=== PATIENT | male | born 1980 | race African-American/Black ===

== ENCOUNTER 2019-11-16 17:00 | Emergency (ER) | payer OTHER, SELFPAY ==
[2019-11-16 17:40] VITALS: BP 131/77; PULSE 76; RESP 16; TEMP 36.8; O2SAT 100; BMI 30.2
--- NOTE | 2019-11-16 17:50 | DI.RAD.S_ITS ---
PROCEDURE: XR ANKLE RT MIN 3V INDICATIONS: ANKLE PAIN TECHNIQUE: 3 views of the ankle were acquired. COMPARISON: None. FINDINGS: Bones: No acute fracture or dislocation. Degenerative changes are present at the mortise joint. A small chronic appearing non unified fracture or calcific tendinitis is noted at the talofibular joint. Soft tissues: No tibiotalar joint effusion. Achilles tendon appears normal. IMPRESSION: Degenerative change. No acute radiographic findings. If pain persists, followup imaging in 5-7 days is recommended to exclude occult fracture. Dictated by: Jolanta Contreras M.D. on 11/16/2019 at 18:15 Approved by: Jolanta Contreras M.D. on 11/16/2019 at 18:17
--- NOTE | 2019-11-16 18:47 | ED_ITS ---
HPI - Extremity Problem General Chief complaint: Extremity Problem,Nontraumatic Stated complaint: right ankle swelling Time Seen by Provider: 11/16/19 17:47 Source: patient Mode of arrival: Ambulatory Limitations: no limitations History of Present Illness HPI Narrative: Otherwise healthy 39-year-old gentleman woke up this morning with his right ankle swollen, tender, not red nor warm to the touch. He is able to b ear weight but it uncomfortable. He has taken 600 mg of ibuprofen with some relief. Does not describe any trauma. He has no history of gout or reason for blood clots. Related Data Allergies Allergy/AdvReac Type Severity Reaction Status Date / Time No Known Drug Allergies Allergy Verified 11/16/19 17:40 Review of Systems Review of Systems Narrative: Pertinent positive and negative findings as per HPI Remainder of review of systems is otherwise unremarkable for Constitutional: Fevers, chills, weakness ENT: No sore throat, neck pain, ear pain CV: Chest pain, palpitations, dyspnea on exertion Respiratory: Cough, wheeze, dyspnea GI: Nausea, vomiting, diarrhea, change in bowel habits, black or bloody stools : Dysuria, hematuria, flank pain MS: Muscle weakness, numbness, joint swelling or warmth Skin: Rashes, nonhealing lesions Patient History Medical History Healthy adult (Acute) Social History Smoking Status: Never smoker Smoking Status: Never smoker Substance Use Type: does not use Exam Narrative Exam Narrative: General: Alert appropriate in no acute distress Respiratory: Able to speak in full sentences, no obvious respiratory distress Skin: No obvious rashes, warm and dry Neurologic: Grossly intact no obvious asymmetries or abnormalities Psych, appropriate insight and affect, cooperative Extremity: Right ankle is somewhat swollen he has full range of motion and is neurovascularly intact. He is tender laterally under the malleolus without any bony point tenderness. His calf is slightly swollen and tender with compression as well. Initial Vital Signs Initial Vital Signs: Vital Signs Temperature 98.2 F 11/16/19 17:40 Pulse Rate 76 11/16/19 17:40 Respiratory Rate 16 11/16/19 17:40 Blood Pressure 131/77 11/16/19 17:40 Pulse Oximetry 100 11/16/19 17:40 Procedures Orthopedic Splinting/Casting Right ankle: Side: right Lower Extremity Injury Location: ankle Lower Extremity Immobilizer: Crow wrap Post splinting vascular exam: intact Placed by: Provider Course Orders Ordered: ED Orders 11/16/19 17:50 XR ankle RT min 3V Stat 11/16/19 18:48 US periph venous low extrem rt Stat 11/16/19 19:28 C-Reactive Protein Quant Stat Complete Blood Count AUTO DIFF Stat Comprehensive Metabolic Panel Stat Uric Acid Stat Vital Signs Vital signs: Vital Signs - 8 hr 11/16/19 17:40 Temperature 98.2 F Pulse Rate 76 Respiratory Rate 16 Blood Pressure 131/77 Pulse Oximetry 100 MDM - Extremity (Nontraumatic) Lab Data Result diagrams: 11/16/19 19:28 11/16/19 19:28 Labs: Lab Results 11/16/19 11/16/19 Range/Units 19:28 19:28 WBC 8.1 (4.5-11.0) X10^3/uL RBC 5.31 (4.5-5.9) X10^6/uL Hgb 14.8 (13.5-17.5) g/dL Hct 45.2 (41-53) % MCV 85.2 (80-100) fL MCH 27.9 (26-34) PG MCHC 32.8 (30-36) % RDW 14.9 H (11.6-14.8) % Plt Count 291 (150-400) X10^3/uL Neut % (Auto) 55.9 (50-75) % Lymph % (Auto) 34.1 (25-40) % [place] % (Auto) 7.2 (3-14) % Eos % (Auto) 2.2 (2-4) % Baso % (Auto) 0.6 (0-2) % Neut # (Auto) 4500 (4879-2583) /uL Lymph # (Auto) 2800 (7214-5971) /uL [place] # (Auto) 600 (0-900) /uL Eos # (Auto) 200 (0-450) /uL Baso # (Auto) 0 (0-100) /uL Sodium 142 (137-145) mmol/L Potassium 3.9 (3.4-5.1) mmol/L Chloride 101 (98-107) mmol/L Carbon Dioxide 32 (22-32) mmol/L BUN 17 (9-20) mg/dL Creatinine 1.10 (0.66-1.25) mg/dL Estimated GFR > 60.0 (>60) mL/min BUN/Creatinine Ratio 15.5 (6-22) Glucose 117 H (70-100) mg/dL Uric Acid 6.1 (3.5-8.5) mg/dL Calcium 9.5 (8.4-10.2) mg/dL Total Bilirubin 0.7 (0.2-1.3) mg/dL AST 27 (17-59) IU/L ALT 25 (<50) IU/L Alkaline Phosphatase 79 (38-126) U/L C-Reactive Protein 0.6 (<1.0) mg/dL Total Protein 8.9 H (6.3-8.2) g/dL Albumin 4.7 (3.5-5.0) g/dL Globulin 4.2 H (1.7-4.1) g/dL Albumin/Globulin Ratio 1.1 (1.0-2.8) Imaging Data Ankle x-ray: Radiologist's Impression: FINDINGS: Bones: No acute fracture or dislocation. Degenerative changes are present at the mortise joint. A small chronic appearing non unified fracture or calcific tendinitis is noted at the talofibular joint. Soft tissues: No tibiotalar joint effusion. Achilles tendon appears normal. IMPRESSION: Degenerative change. No acute radiographic findings. If pain persists, followup imaging in 5-7 days is recommended to exclude occult fracture. Dictated by: Jolanta Contreras M.D. on 11/16/2019 at 18:15 MDM Narrative Medical decision making narrative: 39-year-old gentleman with no obvious trauma presents with right ankle swelling some mild calf swelling. X-rays are negative for bony injury. Ultrasound shows no DVT. Lab work does not suggest gout or infection. Ankle is wrapped with an Crow wrap and reassurance is given. Will have him continue with nonsteroidals ice elevation and compression and return should symptoms worsen. He is safe for home discharge Discharge Plan Departure Patient Disposition: Home Clinical Impression: Ankle sprain Qualifiers: Encounter type: initial encounter Involved ligament of ankle: unspecified ligament Laterality: right Qualified Code(s): S93.401A - Sprain of unspecified ligament of right ankle, initial encounter Instructions: DI for Ankle Sprain Activity Restrictions/Additional Instructions: Thank you for coming in today The x-rays did not suggest any broken bones. He ultrasound shows no evidence of a blood clot in your leg. Blood work does not suggest infection or gout. I do not have a full explanation for why your ankle is swollen. I have placed in Crow wrap and he can use this for as long as it continues to be helpful. Please do continue to use the ibuprofen you are using. If you are getting worse please return for further evaluation. I hope you heal quickly
--- NOTE | 2019-11-16 18:48 | DI.US.S_ITS ---
PROCEDURE: US PERIPH VENOUS LOW EXTREM RT INDICATIONS: UNILATERAL PAIN, EDEMA TECHNIQUE: Real-time imaging, as well as color and pulse Doppler interrogation, were performed of the lower extremity deep veins from the inguinal ligament to the popliteal fossa. COMPARISON: None. FINDINGS: The common femoral, femoral and popliteal veins are normally compressible, and free of intraluminal thrombus. Color and pulse Doppler demonstrate normal phasic intraluminal flow. There is normal augmentation response to distal compression maneuver. IMPRESSION: No deep vein thrombosis of the right lower extremity. Dictated by: Jolanta Contreras M.D. on 11/16/2019 at 20:27 Approved by: Jolanta Contreras M.D. on 11/16/2019 at 20:27
[2019-11-16 19:36] LABS: Add Manual Diff / Slide Review NO; Basophils Absolute Auto 0 /uL (0-100); Basophils Percent Auto 0.6 % (0-2); Eosinophils Absolute Auto 200 /uL (0-450); Eosinophils Percent Auto 2.2 % (2-4); Hematocrit 45.2 % (41-53); Hemoglobin 14.8 g/dL (13.5-17.5); Lymphocytes Absolute Auto 2800 /uL (1100-4500); Lymphocytes Percent Auto 34.1 % (25-40); Mean Corpuscular HGB Conc 32.8 % (30-36); Mean Corpuscular Hemoglobin 27.9 PG (26-34); Mean Corpuscular Volume 85.2 fL (80-100); Monocytes Absolute Auto 600 /uL (0-900); Monocytes Percent Auto 7.2 % (3-14); Neutrophils Absolute Auto 4500 /uL (1500-7000); Neutrophils Percent Auto 55.9 % (50-75); Platelet Count 291 X10^3/uL (150-400); Red Blood Cell Count 5.31 X10^6/uL (4.5-5.9); Red Cell Distribution Width 14.9 % (11.6-14.8); White Blood Cell Count 8.1 X10^3/uL (4.5-11.0)
[2019-11-16 19:51] LABS: Alanine Aminotransferase 25 IU/L (<50); Albumin 4.7 g/dL (3.5-5.0); Albumin Globulin Ratio 1.1 (1.0-2.8); Alkaline Phosphatase 79 U/L (38-126); Aspartate Aminotransferase 27 IU/L (17-59); BUN Creatinine Ratio 15.5 (6-22); Bilirubin Total 0.7 mg/dL (0.2-1.3); Blood Urea Nitrogen 17 mg/dL (9-20); C-Reactive Protein Quant 0.6 mg/dL (<1.0); Calcium 9.5 mg/dL (8.4-10.2); Carbon Dioxide 32 mmol/L (22-32); Chloride 101 mmol/L (98-107); Estimated Glomerular Filt Rate > 60.0 mL/min (>60); Globulin 4.2 g/dL (1.7-4.1); Glucose 117 mg/dL (70-100); HEMOLYSIS < 15 (0-50); Potassium 3.9 mmol/L (3.4-5.1); Sodium 142 mmol/L (137-145); Total Protein 8.9 g/dL (6.3-8.2); Uric Acid 6.1 mg/dL (3.5-8.5)
[2019-11-16 21:10] VITALS: BP 129/76; PULSE 82; O2SAT 99
== END 2019-11-16 21:16 | disposition home or self-care (01) ==
PROVIDERS: Emergency Provider Emergency Medicine
DX: S93.401A Sprain of unspecified ligament of right ankle, initial encounter (principal)
CPT/HCPCS: 36415; 73610; 80053; 84550; 85025; 86140; 93971; 99284